=== PATIENT | male | born 1975 | race Caucasian/White ===

== ENCOUNTER → 2017-10-12 09:41 | Outpatient (CLI) | payer BC, SELFPAY ==
[2017-10-12 11:07] LABS: Add Manual Diff / Slide Review NO; Basophils Percent Auto 0.2 % (0-2); Eosinophils Percent Auto 1.4 % (2-4); Hematocrit 47.1 % (41-53); Hemoglobin 16.2 g/dL (13.5-17.5); Lymphocytes Percent Auto 25.2 % (25-40); Mean Corpuscular HGB Conc 34.4 % (30-36); Mean Corpuscular Hemoglobin 31.5 PG (26-34); Mean Corpuscular Volume 91.5 fL (80-100); Monocytes Percent Auto 6.9 % (3-14); Neutrophils Absolute Auto 5100 /uL (3000-5900); Neutrophils Percent Auto 66.3 % (50-75); Platelet Count 250 X10^3/uL (150-400); Red Blood Cell Count 5.14 X10^6/uL (4.5-5.9); Red Cell Distribution Width 12.9 % (11.6-14.8); White Blood Cell Count 7.6 X10^3/uL (4.5-11.0)
[2017-10-12 11:28] LABS: Alanine Aminotransferase 34 IU/L (21-72); Albumin 4.9 g/dL (3.5-5.0); Albumin Globulin Ratio 1.6 (1.0-2.8); Alkaline Phosphatase 78 U/L (38-126); Aspartate Aminotransferase 32 IU/L (17-59); BUN Creatinine Ratio 22.2 (6-22); Bilirubin Total 0.8 mg/dL (0.2-1.3); Blood Urea Nitrogen 20 mg/dL (9-20); Calcium 9.7 mg/dL (8.4-10.2); Carbon Dioxide 28 mmol/L (22-32); Chloride 99 mmol/L (98-107); Estimated Glomerular Filt Rate > 60.0 mL/min (>60); Globulin 3.1 g/dL (1.7-4.1); Glucose 92 mg/dL (70-100); HEMOLYSIS < 15 (0-50); Potassium 4.3 mmol/L (3.4-5.1); Sodium 140 mmol/L (137-145)
[2017-10-12 11:51] LABS: TSH w/ Reflex to FT4 1.95 uIU/mL (0.47-4.68)
== END ==
PROVIDERS: Family Provider Family Medicine; PCP Family Medicine; Visit Provider Family Medicine
DX: R53.83 Other fatigue (principal)
CPT/HCPCS: 36415; 80053; 84443; 85025

== ENCOUNTER → 2018-08-23 08:53 | Outpatient (CLI) | payer BC, SELFPAY ==
--- NOTE | 2018-08-23 08:56 | DI.RAD.S_ITS ---
PROCEDURE: XR KNEE LT 3V INDICATIONS: left knee pain, injury and surgery 10 years ago TECHNIQUE: 3 views of the left knee were acquired. COMPARISON: [facility], , KNEE 3V RIGHT, 01/10/2014, 11:21. FINDINGS: Bones: No fractures or dislocations. No suspicious bony lesions. A small fabella appears present at the posterior border of the left knee seen on the lateral view Soft tissues: No joint effusion. No suspicious soft tissue calcifications except for the presence of a small amount of chondrocalcinosis at the lateral border of the lateral meniscus and the medial border of the medial meniscus. IMPRESSION: Mild chondrocalcinosis at the left knee, no effusion or loose body found, a definite source of persistent pain is not seen otherwise. Dictated by: Pascual Kovacs M.D. on 08/23/2018 at 10:09 Approved by: Pascual Kovacs M.D. on 08/23/2018 at 10:32
== END ==
PROVIDERS: Family Provider Family Medicine; PCP Family Medicine; Visit Provider Family Medicine
DX: M17.12 Unilateral primary osteoarthritis, left knee (principal); M11.262 Other chondrocalcinosis, left knee
CPT/HCPCS: 73562

== ENCOUNTER → 2020-02-22 16:38 | Outpatient (CLI) | payer OTHER, SELFPAY ==
[2020-02-22 17:20] LABS: COVID19 -Nasal RAPID Negative (Negative)
== END ==
PROVIDERS: Family Provider Family Medicine; PCP Family Medicine; Visit Provider Physician Assistant
DX: Z20.828 Contact with and (suspected) exposure to other viral communicable diseases (principal)
CPT/HCPCS: 87635

== ENCOUNTER → 2020-04-04 16:37 | Outpatient (CLI) | payer OTHER, SELFPAY ==
[2020-04-04 17:16] LABS: COVID19 -Nasal RAPID Negative (Negative)
== END ==
PROVIDERS: Family Provider Family Medicine; PCP Family Medicine; Visit Provider Physician Assistant
DX: Z20.822 Contact with and (suspected) exposure to COVID-19 (principal)
CPT/HCPCS: 87635

== ENCOUNTER → 2020-05-01 16:34 | Outpatient (CLI) | payer OTHER, SELFPAY ==
--- NOTE | 2020-05-01 16:37 | DI.RAD.S_ITS ---
PROCEDURE: XR HAND RT MIN 3V INDICATIONS: r hand pain TECHNIQUE: 3 views of the hand(s) acquired. COMPARISON: None. FINDINGS: Bones: No fractures or dislocations. Carpal bones are normally aligned. No suspicious bony lesions. Soft tissues: No suspicious soft tissue calcifications. IMPRESSION: Negative examination as above. If the patient's pain or other symptoms persist, consider further evaluation with MRI Dictated by: Wyatt Solitario M.D. on 05/01/2020 at 17:01 Approved by: Wyatt Solitario M.D. on 05/01/2020 at 17:03
== END ==
PROVIDERS: Family Provider Family Medicine; PCP Family Medicine; Referring Provider Physician Assistant; Visit Provider Physician Assistant
DX: M79.641 Pain in right hand (principal)
CPT/HCPCS: 73130

== ENCOUNTER → 2020-05-17 11:27 | Outpatient (CLI) | payer OTHER, SELFPAY ==
[2020-05-17] MEDS: COVID-19 VACC #1, MRNA(MOD) 100 MCG/0.5 ML VIAL IM (11:40)
== END ==
PROVIDERS: Family Provider Family Medicine; PCP Family Medicine; Visit Provider Internal Medicine
DX: Z23 Encounter for immunization (principal)
CPT/HCPCS: 0011A; 91301

== ENCOUNTER → 2020-05-22 15:40 | Outpatient (CLI) | payer OTHER, SELFPAY ==
--- NOTE | 2020-05-22 15:41 | DI.MRI.S_ITS ---
PROCEDURE: MR HAND RT WO CON INDICATIONS: swelling, Right 3rd knuckle pain TECHNIQUE: Noncontrast coronal T1 spin echo and T2 fast spin echo with fat saturation, axial proton density fast spin echo and T2 fast spin echo with fat saturation, sagittal T1 spin echo and STIR through the hand and fingers. COMPARISON: None. FINDINGS: Image quality: Excellent. Bones: There is marrow edema involving the 3rd metacarpal head suggestive of contusion. No discrete fracture line is seen. 3rd MCP joint effusion is present. Soft tissues: Periarticular edema about the 3rd MCP joint is present. There is poor definition and T2 hyperintense appearance of the ulnar collateral ligament of the 3rd MCP joint suggestive of sprain. There is also adjacent flexor tenosynovitis of the middle finger. The extensor tendons appear grossly intact. IMPRESSION: Acute marrow contusion involving the 3rd metacarpal head. 3rd MCP joint effusion Possible sprain/partial rupture of the 3rd MCP joint ulnar collateral ligament. Mild middle finger flexor tenosynovitis at the level of the 3rd MCP joint. Dictated by: Wyatt Solitario M.D. on 05/22/2020 at 17:05 Approved by: Wyatt Solitario M.D. on 05/22/2020 at 17:10
== END ==
PROVIDERS: Family Provider Family Medicine; PCP Family Medicine; Referring Provider Family Medicine; Visit Provider Family Medicine
DX: M79.641 Pain in right hand (principal); S60.221A Contusion of right hand, initial encounter; M25.441 Effusion, right hand; M65.841 Other synovitis and tenosynovitis, right hand
CPT/HCPCS: 73218

== ENCOUNTER → 2020-06-14 11:08 | Outpatient (CLI) | payer OTHER, SELFPAY ==
[2020-06-14] MEDS: COVID-19 VACC #2, MRNA(MOD) 100 MCG/0.5 ML VIAL IM (11:11)
== END ==
PROVIDERS: Family Provider Family Medicine; PCP Family Medicine; Visit Provider Internal Medicine
DX: Z23 Encounter for immunization (principal)
CPT/HCPCS: 0012A; 91301

== ENCOUNTER → 2021-04-15 11:28 | Outpatient (CLI) | payer SELFPAY ==
--- NOTE | 2021-04-15 | DI.RAD.S_ITS ---
PROCEDURE: XR FINGER LT MIN 2V INDICATIONS: Pain in left finger(s) TECHNIQUE: AP hand, 2 views of the 2nd finger(s) acquired. COMPARISON: None. FINDINGS: Bones: No fractures or dislocations. No suspicious bony lesions. Soft tissues: No suspicious soft tissue calcifications. Diffuse edema of the 2nd digit. IMPRESSION: No acute osseous abnormality. Dictated by: Alexander Salas M.D. on 04/15/2021 at 14:33 Approved by: Alexander Salas M.D. on 04/15/2021 at 14:34
== END ==
PROVIDERS: Family Provider Family Medicine; PCP Family Medicine; Referring Provider Physician Assistant; Visit Provider Physician Assistant
DX: M79.645 Pain in left finger(s) (principal)
CPT/HCPCS: 73140

== ENCOUNTER 2024-07-21 08:21 | Outpatient (CLI) | payer BC, SELFPAY ==
[2024-07-21] VITALS (9 sets, daily range): BP systolic 108–139; BP diastolic 59–81; PULSE 75–83; RESP 14–16; TEMP 36.9; O2SAT 97–100
[2024-07-21] MEDS: MIDAZOLAM 2 MG/2 ML VIAL IV ×2 (08:59→09:07)
[2024-07-21] MEDS: iopamidoL 15 ML VIAL 3 ML INJ (09:04)
[2024-07-21] MEDS: BUPIVACAINE 0.5% (PF) 10 ML VIAL 5 ML INJ (09:04)
[2024-07-21] MEDS: LIDOCAINE 1% 20 ML 5 ML INJ (09:04)
--- NOTE | 2024-07-21 09:22 | P.PCN_ITS ---
Date/Time/Diagnoses Date of procedure: 07/21/24 Time of procedure: 09:22 Pre-procedure diagnosis: FACET ARTHROPATHY Post-procedure diagnosis: same Procedure Notes Procedure: 1. BILATERAL L3, L4 AND L5 DIAGNOSTIC MB BLOCKS Indications: Adis is referred by Dr. Richardson for treatment of Bilateral Axial LBP. Physician: Sergio Lombardo Total Fluoroscopy time (seconds): 10 Total sedation minutes: 18 Complications: none Procedure in detail & Post-procedure care: DESCRIPTION OF PROCEDURE Fluoroscopically guided, contrast-controlled bilateral L3, L4 and L5 medial branch blocks with 0.5cc of 0.5% Marcaine. Following review of allergy and review of potential side effects and complications, including, but not necessarily limited to, infection, allergic reaction, local tissue breakdown, nerve injury, paralysis, stroke and possible , the patient indicated that the patient understood and agreed to proceed. An informed consent document was signed by the patient, witnessed by a nurse, and placed in the patient's chart. After review of previous anaesthesic history and IV conscious sedation the patient was deemed safe to proceed with today's procedure with IV conscious sedation as ASA class II designation. Safety time-out was performed to confirm patient ID, procedure to be performed and site of procedure. IV sedation was accomplished with a combination of 4mg of Versed was administered by the RN after DO order, titrated to patient comfort during the course of the procedure while the patient remained responsive to all verbal commands In the prone position, following sterile prep and drape of the lumbar region, the right L3, L4 and L5 anatomical location of the medial branch of the dorsal ramus was identified fluoroscopically. Subsequently an anesthetic skin wheal using 1% lidocaine solution was initiated at each of the anatomical spots. Subsequently then a 22-gauge 3.5-inch spinal needle was atraumatically introduced and advanced under fluoroscopic guidance at each of the corresponding sites at the right L3, L4 and L5 MB. After negative aspiration, 0.2cc of Isovue 200 was injected, confirming placement without vascular or intrathecal uptake. Subsequently then 0.5cc of 0.5% Marcaine solution was injected at each of the corresponding sites at the right L3, L4 and L5 medial branch locations. The identical procedure was replicated on the left. The patient tolerated the proced ure well without signs or symptoms of complications. The patient tolerated the procedure well without signs or symptoms of complications prior to transfer to the recovery area continued monitoring without incident. Post-procedure, the patient was monitored initiating provocative activities to measure the amount of relief from block of the facetogenic pain. The patient reported a VAS of 7 prior to the procedure and a post-procedure VAS of 1. It has been a pleasure to assist in the diagnostic and therapeutic care of your patient. POST OP INSTRUCTIONS The patient was provided with a Pain Log to complete over the next several hours and subsequent days prior to the patient's follow up with the ordering physician. If the patient has healthcare network consultant relief to the solution applied, then they may be a candidate for medial branch rhizotomy. The patient is aware, was provided, once again, with a Pain Log and will follow up with the referring physician for review and clinical correlation
== END 2024-07-21 09:40 | disposition home or self-care (01) ==
LOC: RAD 08:22
PROVIDERS: Family Provider Family Medicine; Referring Provider Physical Medicine & Rehabilitation; Visit Provider Physical Medicine & Rehabilitation
DX: M47.816 Spondylosis without myelopathy or radiculopathy, lumbar region (principal)
CPT/HCPCS: 64493; 64494; 99152; J2250

== ENCOUNTER 2024-11-10 07:10 | Outpatient (CLI) | payer BC, SELFPAY ==
[2024-11-10] VITALS (14 sets, daily range): BP systolic 98–126; BP diastolic 54–82; PULSE 63–73; RESP 16–18; TEMP 36.8; O2SAT 97–100
[2024-11-10] MEDS: MIDAZOLAM 2 MG/2 ML VIAL IV (08:28)
[2024-11-10] MEDS: fentaNYL 100 MCG/2 ML INJ 50 MCG IV ×2 (08:29→08:57)
[2024-11-10] MEDS: LIDOCAINE 1% 20 ML 5 ML INJ (08:39)
[2024-11-10] MEDS: MIDAZOLAM 2 MG/2 ML VIAL 1 MG IV ×2 (08:43→08:54)
--- NOTE | 2024-11-10 09:11 | P.PCN_ITS ---
Date/Time/Diagnoses Date of procedure: 11/10/24 Time of procedure: 09:11 Pre-procedure diagnosis: 1. RECALCITRANT FACET ARTHROPATHY Post-procedure diagnosis: same Procedure Notes Procedure: 1. BILATERAL L3, L4 AND L5 MEDIAL BRANCH RADIOFREQUENCY NEUROTOMY Indications: Adis is referred by Dr. Richardson for treatment of facet arthropathy. Physician: Sergio Lombardo Total Fluoroscopy time (seconds): 17 Total sedation minutes: 34 Complications: none Procedure in detail & Post-procedure care: DESCRIPTION OF PROCEDURE Bilateral L3, L4 and L5 medial branch radiofrequency neurotomy The patient is well known to this clinic having undergone previous facet injections with good but temporary relief. The patient has experienced appropriate, concordant relief with previous facet and median branch blocks but the patient's pain has been recalcitrant to further conservative measures. Therefore, based upon the patient's relief and persistent symptoms, the patient is considered an appropriate candidate for facet rhizotomy. All of the patient's questions regarding the risks versus benefits of the procedure, including, but not limited to, bleeding, infection, temporary as well as lasting nerve injury, paralysis, stroke, and , as well treatment alternatives were answered to satisfaction. After obtaining informed consent, denial of pertinent drug allergies, as well as being made aware of the potential risks of bleeding, infection, spinal cord trauma, paralysis, temporary and permanent nerve damage, seizure, stroke, and possible , the patient was brought to the fluoroscopy suite and positioned prone on the fluoroscopy table. After review of previous anaesthesic history and IV conscious sedation the patient was deemed safe to proceed with today's procedure with IV conscious sedation as ASA class II designation. Safety time-out was performed to confirm patient ID, procedure to be performed and site of procedure. IV sedation was accomplished with a combination of 4mg of Versed and 100mcg of Fentanyl administered by the RN after DO order, titrated to patient comfort during the course of the procedure while the patient remained responsive to all verbal commands. The lumbar region was prepped in usual sterile fashion and covered with a fenestrated drape in the usual sterile fashion. Appropriate monitors applied including pulse oximeter, pulse, and blood pressure for regular monitoring throughout the procedure. After local infiltration using 1% lidocaine, under fluoroscopic guidance, a 10- cm RF insulated needle with a 10-mm active tip was positioned parallel to the junction of the right the superior articulating process where the L5 medial branch resides. Needle placement was confirmed with motor stimulation of .5v on the right which produced local stimulation without radicular component. The stimulation was then increased to 2v with, once again, only local multifidus stimulation without radicular component. The needle was then removed and the identical procedure was performed along the length of the right L4 medial branch with motor stimulation at .7v on the right. The identical procedure was once again performed along the length of the right L3 and medial branch with motor stimulation of .5v on the right. The medial branches were then anesthetised with 0.5% marcaine. This was then followed by two discreet lesions performed at 80 degrees Celsius for 90 seconds each. The identical procedures were repeated on the left. The patient tolerated the procedure well without signs or symptoms of complications prior to transfer to the recovery area continued monitoring without incident. The patient was then transferred to the recovery area where they were observed for an appropriate period of time after the injection. The patient reported a VAS score of 9 prior to the procedure and a post-procedure VAS of 0. POST OP INSTRUCTIONS The patient was provided a Pain Log to continue to record the patient's response to the target-specific procedure prior to the patient's follow-up visit with the referring physician. Additionally, specific post-injection care instructions and a contact number to our office were provided if concerns arise regarding possible complications associated with the procedure are suspected.
== END 2024-11-10 09:30 | disposition home or self-care (01) ==
LOC: RAD 07:11
PROVIDERS: Family Provider Family Medicine; Referring Provider Physical Medicine & Rehabilitation; Visit Provider Physical Medicine & Rehabilitation
DX: M47.816 Spondylosis without myelopathy or radiculopathy, lumbar region (principal)
CPT/HCPCS: 64635; 64636; 99152; 99153; J2250; J3010